=== PATIENT | female | born 1990 | race Two or more races ===

== ENCOUNTER 2024-07-01 07:55 | Day surgery (SDC) | payer MEDICAID, SELFPAY ==
[2024-06-30 12:58] VITALS: BMI 43.2
[2024-06-30 13:28] LABS: HCG Qualitative,Urine Negative
[2024-07-01] VITALS (10 sets, daily range): BP systolic 115–149; BP diastolic 75–133; PULSE 69–91; RESP 16–20; TEMP 36.1–36.6; O2SAT 95–100; BMI 44.4
[2024-07-01] MEDS: MIDAZOLAM INJ 1 MG/ML VIAL 2 ML (ASD USE ONLY) 2 MG IV (10:23)
[2024-07-01] MEDS: SODIUM CHLORIDE 0.9% 500 ML 500 ML 20 ML IV (10:23)
[2024-07-01] MEDS: DiphenhydrAMINE INJ 50 MG/ML VIAL 25 MG IV (10:24)
[2024-07-01] MEDS: fentaNYL CIT INJ 50 mCg/ML AMP 2ML (ASD USE ONLY) IV (10:24)
== END 2024-07-01 11:00 | disposition home or self-care (01) ==
PROVIDERS: PCP Physician Assistant Medical; Referring Provider Internal Medicine Gastroenterology; Visit Provider Internal Medicine Gastroenterology
PROC: (CPT 43239; principal; 2024-07-01 08:15)
DX: K29.50 Unspecified chronic gastritis without bleeding (principal); K44.9 Diaphragmatic hernia without obstruction or gangrene
CPT/HCPCS: 43239; 81025; A4649; J1200; J2250; J3010; J7040

== ENCOUNTER 2024-07-03 06:55 | Day surgery (SDC) | payer MEDICAID, SELFPAY ==
[2024-07-02 13:20] VITALS: BMI 44.4
[2024-07-03] VITALS (10 sets, daily range): BP systolic 103–132; BP diastolic 74–90; PULSE 86–100; RESP 17–22; TEMP 36.7–37.4; O2SAT 95–100; BMI 43.4
[2024-07-03] MEDS: MIDAZOLAM INJ 1 MG/ML VIAL 2 ML (ASD USE ONLY) 2 MG IV (09:54)
[2024-07-03] MEDS: SODIUM CHLORIDE 0.9% 500 ML 500 ML 20 ML IV (09:54)
[2024-07-03] MEDS: fentaNYL CIT INJ 50 mCg/ML AMP 2ML (ASD USE ONLY) IV (09:59)
[2024-07-03] MEDS: SIMETHICONE 40 MG/0.6 ML ORAL SYRINGE PO (10:01)
[2024-07-03] MEDS: DiphenhydrAMINE INJ 50 MG/ML VIAL 25 MG IV (10:01)
== END 2024-07-03 11:05 | disposition home or self-care (01) ==
PROVIDERS: PCP Physician Assistant Medical; Referring Provider Internal Medicine Gastroenterology; Visit Provider Internal Medicine Gastroenterology
PROC: 0DBE8ZX Excision of Large Intestine, Via Natural or Artificial Opening Endoscopic, Diagnostic (ICD-10-PCS; CPT 45380; principal; 2024-07-03 09:00)
DX: K52.9 Noninfective gastroenteritis and colitis, unspecified (principal); K64.8 Other hemorrhoids; K31.89 Other diseases of stomach and duodenum
CPT/HCPCS: 45380; J1200; J2250; J3010; J7040; A9270